=== PATIENT | female | born 1990 ===

== ENCOUNTER 2020-11-03 16:29 | Emergency (ER) | payer SELFPAY ==
[~2020-11-03] VITALS: Ht 160 cm; Wt 59.0 kg
[2020-11-03] MEDS ORDERED: DOXY150T5 PO (16:36)
[2020-11-03] MEDS ORDERED: ACETAMINOPHEN WITH CODEINE 300/30MG TABLET PO ONE (17:00)
[2020-11-03] MEDS ORDERED: KETOROLAC 60MG/2ML VIAL IM ONE (18:15)
[2020-11-03] MEDS ORDERED: IBUP-2028 MT (19:45)
[2020-11-03 20:40] VITALS: BP 140/71
== END 2020-11-03 21:06 | disposition home or self-care (01) ==
LOC: ER 16:29
DX: M25.512 Pain in left shoulder (principal); M25.522 Pain in left elbow; M25.532 Pain in left wrist; M79.642 Pain in left hand; M25.562 Pain in left knee; W18.39XA Other fall on same level, initial encounter; Y93.89 Activity, other specified; Y92.89 Other specified places as the place of occurrence of the external cause; Y99.8 Other external cause status; Z87.440 Personal history of urinary (tract) infections
CPT/HCPCS: 29125; 70450; 73030; 73070; 73110; 73130; 73562; 93005; 96372; 99285; J1885